=== PATIENT | male | born 1965 | race Caucasian/White ===

== ENCOUNTER 2016-05-09 22:46 | Emergency (ER) | payer OTHER ==
[2016-05-09 23:00] VITALS: RESP 18
--- NOTE | 2016-05-10 01:59 | XR ---
EXAMINATION TYPE: XR foot complete RT DATE OF EXAM: 05/10/2016 1:30 AM COMPARISON: NONE HISTORY: Pain and swelling TECHNIQUE: 3 views FINDINGS: I see no fracture nor dislocation. Metatarsals are intact. Joint spaces are normal. IMPRESSION: Negative right foot exam. No sign of inflammatory arthritis.
--- NOTE | 2016-05-10 02:21 | ED ---
General Adult HPI - General Chief complaint: Extremity Problem,Nontraumatic Stated complaint: Toe Pain Time Seen by Provider: 05/10/16 00:45 Source: patient, RN notes reviewed Mode of arrival: ambulatory Limitations: no limitations - History of Present Illness Initial comments: This 50-year-old male presents with right foot pain 1 day. Patient states she noticed some swelling in the right side toes. Patient denies any injury or trauma. Patient denies any calf swelling or calf tenderness. Patient states he noticed some tingling to the right toes especially when he is wearing his work boots. Patient has no pain with walking. Patient states it only hurts to the tip of his second and third toes with palpation. Patient denies any weakness. Patient denies any history of blood clots or gout. Patient denies any recent fever, chills, shortness breath, chest pain, abdominal pain, nausea/ vomiting/diarrhea, back pain, hematuria, headache, or visual changes, or any other complaints. - Related Data Home Medications Medication Instructions Recorded Confirmed No Known Home Medications [No 05/09/16 05/09/16 Known Home Medications] Allergies Allergy/AdvReac Type Severity Reaction Status Date / Time No Known Allergies Allergy Verified 05/09/16 23:00 Review of Systems ROS Statement: Those systems with pertinent positive or pertinent negative responses have been documented in the HPI. ROS Other: All systems not noted in ROS Statement are negative. Past Medical History Past Medical History: GERD/Reflux Additional Past Medical History / Comment(s): chronic back pain, hernia History of Any Multi-Drug Resistant Organisms: None Reported Past Surgical History: Hernia Repair, Orthopedic Surgery Past Psychological History: No Psychological Hx Reported Smoking Status: Current every day smoker Past Alcohol Use History: Daily Past Drug Use History: None Reported General Exam - General Exam Comments Initial Comments: General: The patient is awake and alert, in no distress, and does not appear acutely ill. Neck: The neck is supple, there is no tenderness or JVD. Cardiovascular: There is a regular rate and rhythm. No murmur, rub or gallop is appreciated. Respiratory: Lungs are clear to auscultation, respirations are non-labored, breath sounds are equal. No wheezes, stridor, rales, or rhonchi. Musculoskeletal: Tenderness to palpation over the tips of the second and third digits of the right foot. There is no pain with palpation of the first MTP joint or over the joint the second and third digits. There is no swelling or erythema to the foot. There is no calf tenderness or unilateral leg swelling. Negative Homans sign bilaterally. Full range of motion, strength 5/5 and Sensation intact. Dorsalis pedis and posterior tibial pulses are 2+ bilaterally. Capillary refill is normal at less than 2 seconds. Neurological: A&O x 3. CN II-XII intact, There are no obvious motor or sensory deficits. Coordination appears grossly intact. Speech is normal. Skin: Skin is warm and dry and no rashes or lesions are noted. Psychiatric: Normal mood and affect. Limitations: no limitations Course Vital Signs 05/09/16 05/10/16 22:52 02:36 Temperature 96.8 F L 96.7 F L Pulse Rate 75 72 Respiratory 18 18 Rate Blood Pressure 167/91 158/84 O2 Sat by Pulse 97 98 Oximetry Medical Decision Making - Medical Decision Making This is a 50-year-old male presents with right foot pain. On physical exam there is tenderness to palpation over the tips of the second and third digits of the right foot. There is no pain with palpation of the first MTP joint or over the joint the second and third digits. There is no swelling or erythema to the foot. There is no calf tenderness or unilateral leg swelling. Negative Homans sign bilaterally. Full range of motion, strength 5/5 and Sensation intact. Dorsalis pedis and posterior tibial pulses are 2+ bilaterally. Capillary refill is normal at less than 2 seconds. An x-ray of the right foot was done and reviewed showing: Negative right foot exam. No sign of inflammatory arthritis. Report by Dr. Flores. I discussed the results with patient and his was also present in the room. Discussed low suspicion for blood clot as he has no calf tenderness, no unilateral leg swelling, good pedal pulses, no history of blood clots. I discussed low suspicion for gout as the pain does not involve the joint spaces of the right foot and there is no significant swelling or erythema. Discussed the negative x-ray. Patient was offered a postop shoe for comfort while walking. Patient refused this. Discussed return parameters. Discussed close follow-up with PCP. Discussed that patient should follow up with PCP in one to 2 days or return to the [facility] for any worsening symptoms or for any further concerns. Patient was receptive to this plan and patient will be discharged home. I discussed his case with attending physician Dr. Hamilton who agrees the plan as stated above. Disposition Clinical Impression: Pain in right toe(s) Disposition: HOME SELF-CARE Condition: Good Instructions: Arthralgia (ED) Additional Instructions: Please follow-up with family doctor in the next 2 days of symptoms have not improved. Please return to emergency room if the symptoms increase or worsen or for any other concerns. Referrals: Timoteo Mathur DO [Primary Care Provider] - 1-2 days Time of Disposition: 02:21
[2016-05-10 02:37] VITALS: BP 158/84; PULSE 72; TEMP 96.7
== END 2016-05-10 02:36 | disposition home or self-care (01) ==
LOC: EC 22:46
DX: M79.674 Pain in right toe(s) (principal); F17.200 Nicotine dependence, unspecified, uncomplicated
CPT/HCPCS: 99283

== ENCOUNTER → 2017-08-16 | Outpatient (CLI) | payer OTHER ==
--- NOTE | 2017-08-16 16:20 | CONS ---
CONSULTATION REASON FOR CONSULTATION: Nocturnal oxygen desaturation. This is a 51-year-old male patient who is currently being investigated for sleep apnea/sleep breathing disorder. The patient had outpatient studies through [facility] and he was found to have nocturnal desaturation, yet this study was not conclusive as far as whether sleep apnea was present. Based on that, the patient was referred to me. According to his , he snores very loudly. He has also excessive fatigue and sleepiness during the day. He wakes up tired in the morning. He goes to bed around 9:30 p.m. wakes up at 4:30 a.m. in the morning. He averages between 6 and 7 hours of sleep. He falls asleep within a few minutes and he also can take a nap after dinner. No recent weight gain. Overall he has lost about 70 pounds over the years. No alcoholism. No substance abuse. No history of any motor vehicle accidents because of feeling drowsy or sleepy. He is chronic smoker. No history of any chronic lung disease or disorder. Pulse ox on room air at rest is 98%. PAST MEDICAL HISTORY: Degenerative arthritis. PAST SURGICAL HISTORY: Hand surgery and hernia repair. DRUG ALLERGIES: NOT KNOWN. OUTPATIENT MEDICATION LIST: Cyclobenza on a p.r.n. basis and and oxybutynin. SOCIAL HISTORY: Smokes one pack of cigarettes a day. No history of alcoholism. No history of IV drug use. Drinks beer, mainly on weekends. FAMILY HISTORY: Negative for sleep apnea. REVIEW OF SYSTEMS: Twelve-point review of systems was done. No history of insomnia. No history of any choking or gasping for air while sleeping. No grinding of the teeth. He has poor dental conditions. No sleepwalking. He wakes up with a dry mouth. No anxiety or panic attacks. No palpitation. No heartburn. No sweating. No sleeptalking. No restlessness in the lower extremities. No anxiety. No depression. No irritability. PHYSICAL EXAMINATION: BP is 139/85, pulse 60, respirations 16, temperature 97.8, saturation 98% on room air. Weight is 191. Height is 5 feet 6 inches. Neck size 15-/12 inches. BMI 30.2. GENERAL APPEARANCE: Calm comfortable. Head is atraumatic, normocephalic. NECK: Short, supple. Micrognathia. Crowding of posterior pharynx. Mallampati class 4. No goiter or neck masses. Poor dental condition. LUNGS: Clear to auscultation. HEART: Heart sounds are regular rate and rhythm. Normal S1, S2. No S3, S4. No murmurs. ABDOMEN: Soft, nontender. No organomegaly. EXTREMITIES: No edema. No cyanosis or clubbing. Neurologically awake and alert. No focal neurological deficits. PSYCHIATRIC: Appropriate mood and affect. SKIN: Negative for any wounds or ulceration. IMPRESSION: 1. Nocturnal oxygen desaturation confirmed by a home sleep study. Rule out underlying obstructive sleep apnea. Rule out nocturnal alveolar hypoventilation syndrome. Rule out baseline chronic obstructive lung disease/COPD. 2. Chronic fatigue and sleepiness, currently under investigation. Rule out underlying obstructive sleep apnea. 3. Smoker. PLAN: 1. Avoid the use of cyclobenzapri . 2. Avoid alcoholic beverages late at night. 3. Sleep in a sidewise body position. 4. Will need a full sleep study -- a polysomnogram to evaluate for any sleep breathing disorder or any other pathology contributing to his nocturnal oxygen desaturation. There is a significant possibility that the patient may still have underlying obstructive sleep apnea that was missed in the home sleep testing. Will continue to follow. MMODL / IJN: [id number] /
== END | disposition home or self-care (01) ==
LOC: SLEEP 14:15
PROVIDERS: ATTEND Internal Medicine Critical Care Medicine
DX: R06.83 Snoring (principal); R53.83 Other fatigue; G47.00 Insomnia, unspecified; M19.90 Unspecified osteoarthritis, unspecified site; F17.210 Nicotine dependence, cigarettes, uncomplicated; Z98.890 Other specified postprocedural states; Z79.899 Other long term (current) drug therapy
CPT/HCPCS: 80061; 99211